=== PATIENT | male | born 1985 | race Two or more races ===

== ENCOUNTER 2016-03-25 18:17 | Emergency (ER) | payer OTHER ==
[2016-03-25 18:27] VITALS: RESP 16; TEMP 98.1; O2SAT 97
--- NOTE | 2016-03-25 20:00 | DX ---
Chest, PA and Lateral History: Trauma. Fall at work today. Findings: No pneumothorax, pleural effusion, pulmonary contusion, mediastinal widening, or obvious th oracic compression fracture is identified. On the lateral view there is possibly a posterior 11th rib fracture, side indeterminate. Impression: Possible posterior 11th rib fracture. Otherwise negative. Correlation with physical exami nation is recommended.
--- NOTE | 2016-03-25 20:13 | DX ---
Right Hip , 2 views History: Pain post trauma. Fall at work earlier today. Findings: The femoral head is well rounded and normally located. No hip fracture or dislocation is id entified. The SI joints and pubic symphysis look normal. The pelvic ring is intact. Impression: Negative.
--- NOTE | 2016-03-25 20:21 | DX ---
Lumbar Spine, 2 standing views History: Pain, fall at work earlier today. Comparison: None Findings: There are 5 lumbarized vertebral bodies. The lumbar spine is tilted toward the patient's le ft. There is mild narrowing of the L3-L4 and moderate narrowing of the L4-L5 and L5-S1 disk spaces. N o fracture is identified. There is mild degenerative retrolisthesis at L5-S1. Impression: Degenerative disk disease between L3 and S1. No fracture.
--- NOTE | 2016-03-25 20:24 | DX ---
Thoracic spine, 3 views History: Fall at work earlier in the day, pain Comparison: none Findings: There is a mild levo scoliosis convex to the left, centered at T9 where there appears to be a mild rightward wedge deformity. On the lateral view, a mild T9 compression is confirmed.There is n o paraspinal stripe widening. Lateral alignment is anatomic. Thoracic disk spaces maintain normal hei ght. Impression: Mild T9 compression of unknown age. Correlation with the site of the patient's symptoms i s recommended. If it is clinically important to determine the age of this fracture, then MRI would be helpful to assess for bone marrow edema.
[2016-03-25] MEDS ORDERED: IBUPROFEN 600 MG TAB PO ONE (20:57)
[2016-03-25] MEDS ORDERED: OXYCODONE/APAP 5/325 TAB PO ONE ×2 (20:57→22:32)
--- NOTE | 2016-03-25 22:16 | CT ---
CT Thoracic Spine Without Contrast History: Trauma, T9 wedge compression Comparison: plain films earlier Technique: Ultrathin noncontrast helical [address] images through the lumbar spine from T1 to L1. Soft tissue and bone window evaluation is performed. Sagittal and coronal reconstructions are obtaine d utilizing soft tissue and bone window computer analysis modes. Dose reduction techniques were utili zed. Findings: There is a scoliosis convex to the left centered at the cervical thoracic junction. There i s mild rightward wedging of T9 and leftward wedging of T7, neither of which appear acute. There are r ightward osteophytes at the T9-T10 disk space. There is no paraspinal stripe widening. No definite ac filemon fracture is identified. There are small chips adjacent to the superior corners of both superior a rticulating facets of L1, of unknown age. These joints remain normally aligned. The costovertebral alfredo ints are normally aligned. Impression: 1. Indeterminant age chips at the apex of bilateral L1 superior articulating facets. I s uspect these are old. MRI could be performed to assess for associated bone marrow edema, if clinicall y indicated. 2. Probably old mild compressions of T7 and T9. Results discussed with ROSE Priest. General information for patients regarding this examination can be found at [email or web address]. If you have questions or comments about this report, please contact me at [phone] (hospital) or [phone] (cell).
--- NOTE | 2016-03-25 22:25 | EDPHY ---
H & P Stated Complaint: fell at work at 1630- slipped on ice. Has headache now. HPI/ROS: Chief complaint: Slip and fall on ice, back and right hip injury History of present illness: This is a 30-year-old male who presents to the emergency department for evaluation after slipping and falling on ice injuring his back and right hip. This occurred just prior to arrival. He states pain has been persistent since the fall. Worse with movement, better with rest. He denies significant trauma to the head or loss of consciousness. He denies trauma to or pain in the neck, chest, abdomen or other extremities. Further no report of paresthesias, no weakness or paralysis no bowel or bladder dysfunction. Review of systems: A 10 point review of systems was obtained and other than described above was negative - Personal History Current Tetanus Diphtheria and Acellular Pertussis (TDAP): Unsure - Medical/Surgical History Hx Asthma: No Hx Chronic Respiratory Disease: No Hx Diabetes: No Hx Cardiac Disease: No Hx Renal Disease: No Hx Cirrhosis: No Hx Alcoholism: No Hx HIV/AIDS: No Hx Splenectomy or Spleen Trauma: No - Social History Smoking Status: Never smoked - Physical Exam Exam: General Appearance: Alert, non toxic Eyes: PERRLA. ENT: No hemotympanum, no velázquez sign, no raccoon eyes Respiratory: Lungs clear to auscultation bilaterally Cardiac: Regular rate and rhythm. Gastrointestinal: Abdomen is soft, nondistended, nontender to palpation. Neurological: Alert and oriented x4. Cranial nerves 2-12 grossly intact. Strength and sensation intact and symmetrical. Skin: No lesions consistent with trauma noted. Musculoskeletal: Head is normocephalic, atraumatic. The cervical and upper thoracic spine is nontender to palpation without crepitus, bony deformity step- off appreciated. The lower thoracic and lumbar spine and paraspinal muscles are diffusely tender. There is no specific point tenderness, crepitus or bony deformity. Patient is moving all extremities without difficulty although is tenderness over the lateral right hip. Constitutional: Initial Vital Signs Temperature (C) 36.7 C 03/25/16 18:24 Heart Rate 83 03/25/16 18:24 Respiratory Rate 16 03/25/16 18:24 Blood Pressure 136/93 H 03/25/16 18:24 O2 Sat (%) 97 03/25/16 18:24 O2 Delivery Mode Room Air Allergies/Adverse Reactions: No Known Allergies Allergy (Unverified 03/25/16 18:27) Home Medications: Medication Instructions Recorded oxyCODONE/APAP 5/325 [Percocet 1 tab PO Q4HRS #10 tab 03/25/16 5/325] Medical Decision Making - Diagnostics Imaging: Chest x-ray concerning for a possible posterior left 11th rib fracture Thoracic spine x-ray concerning for possible T9 compression fracture Lumbar spine x-ray negative for fracture Right hip x-ray negative for fracture CT of the cervical spine shows indeterminate age chips at the apex of bilateral L1 superior articulating facet. There is suspected to be old. Probable old mild compression of T7 and T9. ED Course/Re-evaluation: Patient discussed with my secondary supervising physician Dr. Vicky Wren. Patient presents to the emergency department for evaluation of back and right hip pain after slipping and falling on ice. He has diffuse tenderness to his low back and hip. He has a questionable 11th rib fracture on the left. Questionable T9 compression fracture seen on x-ray appears to be old on CT scan. Other findings and CT scan appear to likely be old as well. Patient is symptomatically treated and pain is controlled. Patient will be discharged home. Home care is discussed. He is asked to follow up with a spine doctor for recheck. Referral information is given. Strict return precautions are given. Patient voiced understanding and agreement with plan. - Data Points Medications Given: Discontinued Medications Ibuprofen (Motrin) 600 mg PO EDNOW ONE Stop: 03/25/16 20:58 Last Admin: 03/25/16 21:13 Dose: 600 mg Oxycodone/Acetaminophen (Percocet 5/325) 1 tab PO EDNOW ONE Stop: 03/25/16 20:58 Last Admin: 03/25/16 21:13 Dose: 1 tab Oxycodone/Acetaminophen (Percocet 5/325mg Prepack#4) 1 btl TAKEHOME EDNOW ONE Stop: 03/25/16 22:27 Last Admin: 03/25/16 22:39 Dose: 1 btl Oxycodone/Acetaminophen (Percocet 5/325) 1 tab PO EDNOW ONE Stop: 03/25/16 22:33 Last Admin: 03/25/16 22:39 Dose: 1 tab Departure - Departure Disposition: Home, Routine, Self-Care Clinical Impression: Injury of back Condition: Good Instructions: Acute Low Back Pain (ED) Additional Instructions: Follow-up with Neurosurgery for continued evaluation and care In regards to pain control see the following: Use ibuprofen 600 mg 3 times a day for the next 2-3 days for pain In addition You have been prescribed Percocet for pain. Percocet contains Tylenol, do not take extra Tylenol/acetaminophen/Apap with it. It is sedating. If symptoms worsen or new symptoms develop return to the emergency department for recheck Referrals: NONE *PRIMARY CARE P,. [Primary Care Provider] - As per Instructions Eyad Khan MD [Medical Doctor] - As per Instructions Prescriptions: oxyCODONE/APAP 5/325 [Percocet 5/325] 1 tab PO Q4HRS #10 tab
[2016-03-25] MEDS ORDERED: OXYCODONE/APAP 5/325MG PREPACK#4 BTL TAKEHOME ONE (22:26)
[2016-03-25 22:40] VITALS: BP 126/77; PULSE 69
== END 2016-03-25 22:40 | disposition home or self-care (01) ==
DX: S29.9XXA Unspecified injury of thorax, initial encounter (principal); W00.0XXA Fall on same level due to ice and snow, initial encounter